=== PATIENT | male | born 1940 | race African-American/Black ===

== ENCOUNTER → 2016-11-27 | Outpatient (CLI) | payer MEDICARE, OTHER | END | disposition home or self-care (01) | LOC: PCVCCLINIC 13:27 | PROVIDERS: ATTEND Internal Medicine Cardiovascular Disease | DX: I77.9 Disorder of arteries and arterioles, unspecified (principal); E78.00 Pure hypercholesterolemia, unspecified; K21.9 Gastro-esophageal reflux disease without esophagitis; R06.00 Dyspnea, unspecified; I25.5 Ischemic cardiomyopathy; I25.10 Atherosclerotic heart disease of native coronary artery without angina pectoris; I10 Essential (primary) hypertension; E11.9 Type 2 diabetes mellitus without complications; Z95.1 Presence of aortocoronary bypass graft | CPT/HCPCS: 80061; 93005; G0463 ==

== ENCOUNTER → 2016-12-11 | Outpatient (CLI) | payer MEDICARE, OTHER | END | disposition home or self-care (01) | LOC: PCVCCLINIC 10:10 | PROVIDERS: ATTEND Internal Medicine Cardiovascular Disease | DX: I77.9 Disorder of arteries and arterioles, unspecified (principal); E11.9 Type 2 diabetes mellitus without complications; I10 Essential (primary) hypertension; E78.00 Pure hypercholesterolemia, unspecified; I25.10 Atherosclerotic heart disease of native coronary artery without angina pectoris; I25.5 Ischemic cardiomyopathy; K21.9 Gastro-esophageal reflux disease without esophagitis; Z95.1 Presence of aortocoronary bypass graft | CPT/HCPCS: 93005; G0463 ==

== ENCOUNTER → 2017-03-05 | Outpatient (CLI) | payer MEDICARE ==
[~2017-03-05] MED LIST: REGADENOSON 0.4 MG/5 ML DISP.SYRIN. IV ONE
--- NOTE | 2017-03-05 17:39 | PCVCIMAG ---
APPROVED REPORT Study performed: 03/05/2017 11:13:08 EXAM: Comprehensive 2D, Doppler, and color-flow Echocardiogram Patient Location: Echo lab Other Information Study Quality: Adequate Indications Bradycardia, heart block. CABG. 2D Dimensions LVEF(%): 5.75 (>50%) IVSd: 8.98 (7-11mm)LVOT Diam: 20.39 (18-24mm) LVDd: 53.58 mm PWd: 8.90 (7-11mm)Ascending Ao: 32.49 (22-36mm) LVDs: 52.23 (25-40mm) Left Atrium: 38.44 (27-40mm) Aortic Root: 29.97 mm LV Single Plane 4CH: 34.29 % Sommers's LVEF: 5.75 % Volumes Left Atrial Volume (Systole) Single Plane 4CH: 69.68 mLSingle Plane 2CH: 49.63 mL Aortic Valve AoV Peak Vinay.: 1.40 m/s AO Peak Gr.: 7.84 mmHgLVOT Max P.83 mmHg LVOT Max V: 0.98 m/s MONTY Vmax: 2.27 cm2 Mitral Valve E/A Ratio: 1.0 MV Decel. Time: 120.72 ms MV E Max Vinay.: 0.96 m/s MV A Vinay.: 0.98 m/s Pulmonary Valve PV Peak Gr.: 2.83 mmHg Tricuspid Valve TR Peak Vinay.: 3.21 m/s TR Peak Gr.: 41.28 mmHg Left Ventricle The left ventricle is normal size. There is normal LV segmental wall motion. There is normal left ventricular wall thickness. Left ventricular systolic function is normal. The left ventricular ejection fraction is within the normal range. LVEF is 50-55%. Right Ventricle The right ventricle is normal size. The right ventricular systolic function is normal. Atria The left atrium size is normal. The right atrium size is normal. Aortic Valve The aortic valve is normal in structure. No aortic regurgitation is present. There is no aortic valvular stenosis. Mitral Valve The mitral valve is normal in structure. Moderate mitral regurgitation. No evidence of mitral valve stenosis. Tricuspid Valve The tricuspid valve is normal in structure. Moderate tricuspid regurgitation. Pulmonary artery pressure is 49mmhg. Pulmonic Valve The pulmonary valve is normal in structure. Trace pulmonic regurgitation. Great Vessels The aortic root is normal in size. IVC is normal in size and collapses with >50% inspiration Pericardium There is no pericardial effusion. <Conclusion> The left ventricle is normal size. There is normal left ventricular wall thickness. LVEF is 50-55%. The right ventricle is normal size. The left atrium size is normal. The right atrium size is normal. The mitral valve is normal in structure. Moderate tricuspid regurgitation. Pulmonary artery pressure is 49mmhg. There is no pericardial effusion.
== END | disposition home or self-care (01) ==
LOC: PCVCIMAG 09:12
PROVIDERS: ATTEND Internal Medicine Cardiovascular Disease
DX: I08.1 Rheumatic disorders of both mitral and tricuspid valves (principal); I44.1 Atrioventricular block, second degree; I25.10 Atherosclerotic heart disease of native coronary artery without angina pectoris; I45.9 Conduction disorder, unspecified; I25.5 Ischemic cardiomyopathy; I12.9 Hypertensive chronic kidney disease with stage 1 through stage 4 chronic kidney disease, or unspecified chronic kidney disease; E11.22 Type 2 diabetes mellitus with diabetic chronic kidney disease; N18.9 Chronic kidney disease, unspecified; E78.5 Hyperlipidemia, unspecified; I25.2 Old myocardial infarction; Z79.4 Long term (current) use of insulin; Z95.1 Presence of aortocoronary bypass graft; Z79.82 Long term (current) use of aspirin; Z79.899 Other long term (current) drug therapy; E78.00 Pure hypercholesterolemia, unspecified
CPT/HCPCS: 93306; G0463; J2785

== ENCOUNTER → 2017-06-18 | Outpatient (CLI) | payer MEDICARE | END | disposition home or self-care (01) | LOC: PCVCCLINIC 15:22 | PROVIDERS: ATTEND Internal Medicine Cardiovascular Disease | DX: I25.10 Atherosclerotic heart disease of native coronary artery without angina pectoris (principal); I10 Essential (primary) hypertension; I42.9 Cardiomyopathy, unspecified; I77.9 Disorder of arteries and arterioles, unspecified; E78.00 Pure hypercholesterolemia, unspecified; E11.8 Type 2 diabetes mellitus with unspecified complications; R94.31 Abnormal electrocardiogram [ECG] [EKG]; Z95.1 Presence of aortocoronary bypass graft; Z95.0 Presence of cardiac pacemaker; Z79.899 Other long term (current) drug therapy; Z79.82 Long term (current) use of aspirin | CPT/HCPCS: 80061; 93005; G0463 ==

== ENCOUNTER → 2018-01-04 | Outpatient (CLI) | payer MEDICARE | END | disposition home or self-care (01) | LOC: PCVCCLINIC 13:51 | DX: I25.10 Atherosclerotic heart disease of native coronary artery without angina pectoris (principal); I77.9 Disorder of arteries and arterioles, unspecified; E78.00 Pure hypercholesterolemia, unspecified; I10 Essential (primary) hypertension; I48.0 Paroxysmal atrial fibrillation; Z95.0 Presence of cardiac pacemaker; Z95.1 Presence of aortocoronary bypass graft; Z79.82 Long term (current) use of aspirin; Z79.899 Other long term (current) drug therapy | CPT/HCPCS: 80061; 93280; G0463 ==

== ENCOUNTER → 2018-08-04 | Outpatient (CLI) | payer MEDICARE ==
--- NOTE | 2018-08-04 14:24 | PCVCIMAG ---
EXAM: BILATERAL CAROTID DUPLEX INDICATION: Carotid Occlusive Disease. FINDINGS: Doppler Measurements (centimeters per second): RIGHT: Peak CCA-77, Peak ECA-194, Diastolic ICA-22, Peak ICA-171, ICA/CCA Ratio-2.2. LEFT: Peak CCA-106, Peak ECA-134, Diastolic ICA-16, Peak ICA-110, ICA/CCA Ratio-1.0. RIGHT CAROTID: The carotid bulb has moderately severe plaque. The proximal internal carotid artery shows 60% stenosis. The common carotid artery shows no significant stenosis. The external carotid artery shows 60-70% stenosis. LEFT CAROTID: The carotid bulb has moderate plaque. The proximal internal carotid artery shows <40% stenosis. The common carotid artery shows no significant stenosis. The external carotid artery shows 40% stenosis. Antegrade flow in both vertebral arteries. IMPRESSION: 60% stenosis of the right internal carotid artery with moderately severe plaque. <40% stenosis of the left internal carotid artery with moderate plaque. Mild progression in right carotid stenosis since June 2017. LOC:[id number]
== END | disposition home or self-care (01) ==
LOC: PCVCIMAG 13:09
PROVIDERS: ATTEND Internal Medicine Cardiovascular Disease
DX: I65.23 Occlusion and stenosis of bilateral carotid arteries (principal); R00.1 Bradycardia, unspecified; I44.2 Atrioventricular block, complete; I25.10 Atherosclerotic heart disease of native coronary artery without angina pectoris; I10 Essential (primary) hypertension; I25.5 Ischemic cardiomyopathy; E11.8 Type 2 diabetes mellitus with unspecified complications; I48.0 Paroxysmal atrial fibrillation; Z95.1 Presence of aortocoronary bypass graft; Z95.0 Presence of cardiac pacemaker
CPT/HCPCS: 36415; 80061; 93280; 93880; G0463

== ENCOUNTER → 2018-11-18 | Outpatient (CLI) | payer MEDICARE ==
--- NOTE | 2018-11-22 16:10 | PCVCIMAG ---
APPROVED REPORT Imaging Protocol: Rest Tc-99m/Stress Tc-99m 1 day Study performed: 11/18/2018 08:52:32 Indication: CAD , Atrial Fibrillation, Chest pain, Dyspnea Patient Location: Out-Patient Stress Nurse: Karissa Garza RN MT Tech:Dorothea Solomonoc [facility] Ht: 6 ft 2 in Wt: 215 lbs BSA: 2.24 m2 HR: 60 bpm BP: 151/70 mmHg BMI: 27.6 Rhythm: Paced with a LBBB Medical History Medical History: HTN, Hyperlipidemia, CAD, Diabetic Insulin, Atrial Fibrillation Medications: Norvasc, ASA, Lantus, Imdur, Lisinopril, Metoprolol, Ranexa, Xarelto, Crestor Allergies: No known drug allergies Cardiac Risk Factors: Age Previous Cardiac Procedures: 1995 CABG Pretest Chest Pain Characteristics: No chest pain Exercise History: Physically active Resting Data Rest SPECT myocardial perfusion imaging was performed in supine position 45 minutes following the intravenous injection of 9.4 mCi of Tc-99m Sestamibi. Time of rest injection: 819 Date: 11/18/2018 Administration Route: IV Administration Site: Left Arm Pharmacologic Stress Pharmacologic stress test was performed by injecting Regadenoson 0.4 mg IV push over 10-15 seconds immediately followed by the intravenous injection of 31.3 mCi of Tc-99m Sestamibi. Time of stress injection: 929 Date: 11/18/2018 Administration Route: IV Administration Site: Left Arm Gated Stress SPECT was performed 45 minutes after stress injection. The images were gated to evaluate regional wall motion and calculate left ventricular ejection fraction. Comments Prior Nuclear Stress Test 01/2018: Nonischemic Stress Test Details Stress Test: Pharmacologic stress testing performed using 0.4 mg of regadenoson per 5 mL given IV over 10 seconds. Reason for pharmacologic stress test: Patient has a pacemaker. HRMax Heart Rate (APMHR): 142 bpm Resting HR: 60 bpmTarget HR (85% APMHR): 120 bpm Max HR Achieved: 60 bpm % of APMHR: 42 Recovery HR: 60 bpm BP Resting BP: 151/70 mmHg Max BP: 164/73 mmHg Recovery BP: 143/69 mmHg ECG Resting ECG: Paced Rhythm, LBBB Stress ECG: Paced Rhythm, LBBB Recovery ECG: Paced Rhythm, LBBB Clinical Reason for Termination: Completed protocol Stress Symptoms: None Exercise duration: 0 min 55 sec Stress ECG Conclusion non diagnostic paced Study Quality Study: Good Study Data Post stress, the left ventricular ejection was 48%.. SSS: 13 SRS: 8 SDS: 5 TID = 1.06. 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 Post stress, the left ventricular ejection was 48%. No change since prior study dated June 2017. Interpreted by: Dar Clayton MD Electronically Approved: 11/18/2018 15:03:17 <Conclusion> non diagnostic paced
== END | disposition home or self-care (01) ==
LOC: PCVCIMAG 07:32
PROVIDERS: ATTEND Internal Medicine Cardiovascular Disease
DX: I25.10 Atherosclerotic heart disease of native coronary artery without angina pectoris (principal); I48.91 Unspecified atrial fibrillation; R07.9 Chest pain, unspecified; R06.09 Other forms of dyspnea
CPT/HCPCS: 78452; 93017; A9500; J2785

== ENCOUNTER → 2019-01-07 | Outpatient (CLI) | payer MEDICARE ==
--- NOTE | 2019-01-07 17:45 | PCVCIMAG ---
APPROVED REPORT Study performed: 01/07/2019 08:07:58 EXAM: Comprehensive 2D, Doppler, and color-flow Echocardiogram Patient Location: Echo lab Room #: 2Status: routine BSA: 2.22 HR: 60 bpmBP: 118/56 mmHg Rhythm: Pacemaker Other Information Study Quality: Adequate Indications Pacemaker CAD Cardiomyopathy Chest Pain Hypertension/HDD Hx old Ant FL, complete heart block 2D Dimensions IVSd: 9.15 (7-11mm)LVOT Diam: 20.31 (18-24mm) LVDd: 56.45 mm PWd: 9.81 (7-11mm) LVDs: 45.71 (25-40mm) Left Atrium: 35.60 (27-40mm) Aortic Root: 30.43 mm LV Single Plane 4CH: 42.30 % LV Single Plane 2CH: 45.19 % Biplane EF: 44.1 % Volumes Left Atrial Volume (Systole) Single Plane 4CH: 39.52 mLSingle Plane 2CH: 45.15 mL Biplane LA Volume: 43.00 mLLA ESV Index: 19.00 mL/m2 Aortic Valve AoV Peak Vinay.: 1.40 m/s AO Peak Gr.: 8.59 mmHgLVOT Max P.31 mmHg LVOT Max V: 0.89 m/s MONTY Vmax: 2.06 cm2 Mitral Valve E/A Ratio: 1.0 MV Decel. Time: 258.52 ms MV E Max Vinay.: 0.85 m/s MV A Vinay.: 0.84 m/s IVRT: 100.35 ms TDI E/Lateral E': 9.44E/Medial E': 17.00 Medial E' Vinay.: 0.05 m/s Lateral E' Vinay.: 0.09 m/s Pulmonary Valve PV Peak Vinay.: 1.07 m/sPV Peak Gr.: 4.56 mmHg Pulmonary Vein P Vein S: 0.48 m/sP Vein A: 0.23 m/s P Vein D: 0.82 m/sP Vein A Dur.: 114.2 msec P Vein S/D Ratio: 0.59 Tricuspid Valve TR Peak Vinay.: 3.05 m/s TR Peak Gr.: 37.11 mmHg TV Vmax: 0.65 m/sPA Pressure: 44.00 mmHg Left Ventricle Left ventricle is at the upper limits of normal. There is global mild hypokinesis of the left ventricle. Paradoxical septal motion consistent with paced rhythm and CABG. Old anterior FL with akinesis seen There is normal left ventricular wall thickness. Left ventricular systolic function is mildly decreased. LVEF is 40-45%. The diastolic function is abnormal. Right Ventricle The right ventricle is normal size. The right ventricular systolic function is normal. Atria The left atrium size is normal. The right atrium size is normal. Aortic Valve Aortic valve is trileaflet. The Aortic valve is mildly sclerotic. No aortic regurgitation is present. There is no aortic valvular stenosis. Mitral Valve The mitral valve is normal in structure. Mild to moderate mitral regurgitation. No evidence of mitral valve stenosis. Tricuspid Valve The tricuspid valve is normal in structure. Mild to moderate tricuspid regurgitation with a PA pressure of 44 mmHg. Moderate pulmonary hypertension. Pulmonic Valve The pulmonary valve is normal in structure. Trace to mild pulmonic regurgitation. Great Vessels The aortic root is normal in size. Ascending aorta is not well visualized. Aortic arch is normal in caliber. IVC is mildly dilated and collapses >50% with inspiration. Pericardium There is no pericardial effusion. There is no pleural effusion. <Conclusion> Left ventricle is at the upper limits of normal. There is global mild hypokinesis of the left ventricle. Paradoxical septal motion consistent with paced rhythm and CABG. Old anterior FL with akinesis seen LVEF is 40-45%. The right ventricle is normal size. The left atrium size is normal. Aortic valve is trileaflet. The Aortic valve is mildly sclerotic. There is no aortic valvular stenosis. Mild to moderate mitral regurgitation. Mild to moderate tricuspid regurgitation with a PA pressure of 44 mmHg. Moderate pulmonary hypertension. The aortic root is normal in size. There is no pericardial effusion.
== END | disposition home or self-care (01) ==
LOC: PCVCIMAG 07:50
PROVIDERS: ATTEND Internal Medicine Cardiovascular Disease
DX: I08.3 Combined rheumatic disorders of mitral, aortic and tricuspid valves (principal); I25.10 Atherosclerotic heart disease of native coronary artery without angina pectoris; I42.9 Cardiomyopathy, unspecified; R07.9 Chest pain, unspecified; I10 Essential (primary) hypertension; I27.20 Pulmonary hypertension, unspecified; Z95.0 Presence of cardiac pacemaker; Z95.1 Presence of aortocoronary bypass graft
CPT/HCPCS: 93306

== ENCOUNTER → 2019-02-16 | Outpatient (CLI) | payer MEDICARE | END | disposition home or self-care (01) | LOC: PCVCCLINIC 14:30 | PROVIDERS: ATTEND Internal Medicine Cardiovascular Disease | DX: I25.10 Atherosclerotic heart disease of native coronary artery without angina pectoris (principal); E78.00 Pure hypercholesterolemia, unspecified; I42.9 Cardiomyopathy, unspecified; I65.23 Occlusion and stenosis of bilateral carotid arteries; I10 Essential (primary) hypertension; E11.9 Type 2 diabetes mellitus without complications | CPT/HCPCS: 36415; 80061; 93280; G0463 ==